=== PATIENT | male | born 1945 | race Caucasian/White ===

== ENCOUNTER 2020-04-01 07:01 | Outpatient (CLI) | payer MEDICARE ==
[2020-04-01 16:11] LABS: Hemoglobin 15.7 g/dL (14.0-18.0); Mean Corpuscular HGB CONC 31.8 G/DL (32.0-36.0); Mean Corpuscular Hemoglobin 30.5 PG (27.0-33.0); Mean Corpuscular Volume 96.1 fl (80.0-100.0); Mean Platelet Volume 12.5 fl (7.4-10.4); Platelet Count 130 10x3/uL (130-400); RBC Distribution Width 13.2 % (11.5-14.5); Red Blood Cell (RBC) Count 5.14 10x6/uL (4.40-5.80); White Blood Cell (WBC) Count 5.9 10x3/uL (4.5-11.0)
[2020-04-01 16:20] LABS: INR-International Normal Ratio 1.1; PTT 25.9 sec (22.0-33.0); Prothrombin Time 11.4 sec (9.5-12.1)
[2020-04-01 16:24] LABS: Anion Gap 18 mmol/L (10-20); BUN (Urea Nitrogen) 16 mg/dL (8.4-25.7); Calc. Creatinine Clearance 0 mL/min (70-130); Calcium 9.5 mg/dL (7.8-10.44); Carbon Dioxide 23 mmol/L (23-31); Chloride 105 mmol/L (98-107); Glucose 86 mg/dL (83-110); Potassium 4.5 mmol/L (3.5-5.1); Sodium 141 mmol/L (136-145)
[2020-04-02 06:31] LABS: SARS-CoV-2 MS2 Positive; SARS-CoV-2 N Gene Negative; SARS-CoV-2 S Gene Negative; SARS-CoV-2 by NAA Not Detected (NotDetected); SARS-CoV-2 orf1ab Negative
== END 2020-04-01 07:02 | disposition home or self-care (01) ==
LOC: LABBT 07:01
PROVIDERS: ATTEND Surgery
DX: Z01.818 Encounter for other preprocedural examination (principal); Z20.828 Contact with and (suspected) exposure to other viral communicable diseases; M51.16 Intervertebral disc disorders with radiculopathy, lumbar region; M48.062 Spinal stenosis, lumbar region with neurogenic claudication
CPT/HCPCS: 80048; 85027; 85610; 85730; 93005; U0003; 87635; 93010

== ENCOUNTER 2020-04-04 05:55 | Day surgery (SDC) | payer MEDICARE ==
[2020-04-03 09:54] VITALS: BMI 29.3
[2020-04-04] MEDS ORDERED: Thrombin 5000 UNITS/5 ML VIAL ONE (06:34)
[2020-04-04] MEDS ORDERED: Fentanyl 100 MCG/2 ML VIAL ONE ×4 (06:41→10:48)
[2020-04-04] MEDS ORDERED: Lidocaine 2% Jelly 5 ML TUBE ONE (06:41)
[2020-04-04] MEDS ORDERED: Phenylephrine 10 MG/ML VIAL ONE (07:56)
[2020-04-04] MEDS ORDERED: Bisacodyl 10 MG SUPP PR PRN (09:52)
[2020-04-04] MEDS ORDERED: Ondansetron PF 4 MG/2 ML Vial IVP PRN (09:52)
[2020-04-04] MEDS ORDERED: Morphine 2 MG/ML VIAL SLOW IVP PRN (09:52)
[2020-04-04] MEDS ORDERED: Milk Of Magnesia 30 ML UDCUP PO PRN (09:52)
[2020-04-04] MEDS ORDERED: Acetaminophen 325 MG TAB PO PRN (09:52)
[2020-04-04] MEDS ORDERED: traMADol HCl 50 MG TAB PO PRN (09:52)
[2020-04-04] MEDS ORDERED: Mag-Al 1200 mg/1200 mg/30 ML UDCUP PO PRN (09:52)
[2020-04-04] MEDS ORDERED: tiZANidine HCl 4 MG TAB PO PRN (09:56)
[2020-04-04] MEDS ORDERED: Ondansetron HCl/PF 4 MG/2 ML Vial IVP PRN ×2 (10:01→11:30)
[2020-04-04] MEDS ORDERED: Promethazine HCl 25 MG/ML VIAL IM PRN (10:01)
[2020-04-04] MEDS ORDERED: Promethazine HCl 25 MG/ML VIAL SLOW IVP PRN (10:01)
[2020-04-04] MEDS ORDERED: Famotidine 20 MG TAB PO PRN (10:09)
[2020-04-04] MEDS ORDERED: Lidocaine 1% PF 5 ML VIAL ONE (10:36)
[2020-04-04] MEDS ORDERED: ePHEDrine 50 MG/ML VIAL ONE (10:36)
[2020-04-04] MEDS ORDERED: PHENYLEPHRINE-NS 100 MCG/ML 10 ML SYRINGE ONE (10:36)
[2020-04-04] MEDS ORDERED: Ondansetron PF 4 MG/2 ML Vial ONE (10:36)
[2020-04-04] MEDS ORDERED: Glycopyrrolate 0.2 MG/ML 5 ML SYRINGE ONE (10:36)
[2020-04-04] MEDS ORDERED: Dexamethasone 20 MG/5 ML VIAL ONE (10:36)
[2020-04-04] MEDS ORDERED: PROPOFOL 200 MG/20 ML VIAL ONE (10:36)
[2020-04-04] MEDS ORDERED: Rocuronium Bromide 10 MG/ML (10ML VIAL) ONE (10:36)
--- NOTE | 2020-04-04 11:12 | OP ---
DATE OF PROCEDURE: 04/04/2020 LOCATION: OR 12. CHOIR TEACHER: Germaine Mcclain PA-C PREPROCEDURE DIAGNOSES: Multilevel lumbar stenosis with low back and leg pain, lumbar disk extrusion. POSTPROCEDURE DIAGNOSES: Multilevel lumbar stenosis with low back and leg pain, lumbar disk extrusion. PROCEDURES PERFORMED: 1. L2-L3, L3-L4, L4-5 laminectomies, partial facetectomies, foraminotomies. 2. Right L4-L5 diskectomy with use of operative microscope for microdissection. DESCRIPTION OF PROCEDURE: After informed consent was obtained from the patient, the patient was brought to the OR. Proper patient, pause, and identification were carried out. He was placed under excellent general endotracheal anesthesia and positioned prone on the OR table. All appropriate points were padded. We identified the L2 through L5 dorsal spines. Linear grisel was made over this region. This area was sterilely cleansed, prepared, and draped. Proper patient, pause, and identification were carried out. The wound was then opened with a combination of sharp, monopolar, and blunt dissection, proceeded to expose the L2, L3, L4, L5 dorsal spines and lamina. Localization film confirmed area of interest. We then performed L2-L3, L4-L5 laminectomies, partial facetectomies, foraminotomies. We then worked over the shoulder with right L5 nerve root and a right L4-L5 diskectomy was performed with the use of the operative microscope for microdissection. Copious irrigation occurred throughout as did maximizing hemostasis. The wound was closed in anatomic layers. Job ID: [id number]
[2020-04-04] MEDS ORDERED: Non-Formulary Medication 1 EACH PO PRN (11:21)
[2020-04-04] MEDS ORDERED: Morphine 4 MG/ML VIAL ONE (11:22)
[2020-04-04] MEDS ORDERED: Morphine Sulfate 2 MG/ML SYRINGE SLOW IVP PRN (11:30)
[2020-04-04] MEDS ORDERED: PACU-Morphine 4MG/ML VIAL SLOW IVP PRN (11:30)
[2020-04-04] MEDS ORDERED: Promethazine HCl 25 MG/ML VIAL IM/IV PRN (11:30)
[2020-04-04] MEDS ORDERED: Morphine 2 MG/ML VIAL ONE ×5 (11:58→15:26)
[2020-04-04] MEDS ORDERED: tiZANidine HCl 4 MG TAB ONE (13:39)
[2020-04-04] MEDS: Sodium Chloride 0.9% 1,000 ML IV SCH ×2 (17:00→22:32)
[2020-04-04] MEDS: CEFAZOLIN 2 GM in Premix Bag 1 BAG IVPB SCH ×2 (17:00→21:00)
[2020-04-04] MEDS: HYDROcodone/Acetaminophen 7.5/325 mg Tablet PO PRN (17:07)
[2020-04-04] MEDS: Acetaminophen/Codeine 30-300mg Tablet PO PRN ×2 (18:27→22:37)
[2020-04-04] MEDS ORDERED: Levothyroxine Sodium 25 MCG TAB PO SCH (21:00)
[2020-04-04] MEDS ORDERED: Pregabalin 75 MG CAP PO SCH (21:00)
[2020-04-04] MEDS ORDERED: Atorvastatin Calcium 40 MG TAB PO SCH (21:00)
[2020-04-05] MEDS: HYDROcodone/Acetaminophen 7.5/325 mg Tablet PO PRN ×2 (00:57→06:54)
[2020-04-05 08:11] VITALS: BP 113/75; TEMP 97.7
[2020-04-05] MEDS: Sodium Chloride 0.9% 1,000 ML IV SCH (08:31)
--- NOTE | 2020-04-05 09:26 | PRG ---
DATE OF SERVICE: 04/05/2020 Mr. Whitfield is postoperative day #1 following L2 through L5 laminectomy and right L4-L5 diskectomy. He is doing very well this morning with resolution in his low back and leg pain. He is neurologically intact in his lower extremity myotomes. He has already ambulated. We will plan on discharge, and we went over do's and don'ts in the postoperative period. Job ID: [id number]
--- NOTE | 2020-04-05 10:21 | DIS ---
DATE OF ADMISSION: 04/04/2020 DATE OF DISCHARGE: 04/05/2020 DIAGNOSES: 1. Lumbar stenosis. 2. Lumbar radiculopathy. 3. Lumbar herniated nucleus pulposus. PROCEDURES: L2 through L5 laminectomies, partial facetectomies, and foraminotomies with right L4-L5 diskectomy on April 04, 2020. CONSULT: None. HOSPITAL COURSE: Mr. Whitfield is a pleasant 74-year-old gentleman, who was admitted to the hospital following the above surgery for postoperative pain control and monitoring. He endorses postoperative low back pain, he reports that his preoperative left greater than right electrical leg pain has resolved. He states that his legs feel much better compared to before surgery. He denies paresthesias or weakness in the legs. He states that he has been able to ambulate about the halls without difficulty. He denies difficulty urinating. He states that he would like to go home today, and our team feels that he is stable for discharge home. Postoperative restrictions and wound care were discussed with the patient. Pain medications and muscle relaxants were provided upon discharge. The patient was instructed to hold his aspirin for 7 days following surgery. Our team will arrange for followup on an outpatient basis in the upcoming weeks for reevaluation and wound check. He will call sooner with any questions or concerns. Job ID: [id number]
[2020-04-05] MEDS: Acetaminophen/Codeine 30-300mg Tablet PO PRN (11:22)
== END 2020-04-05 11:55 | disposition home or self-care (01) ==
LOC: SDC 05:55 → SURG A 09:52 → SDC 04-05 11:55
PROVIDERS: ATTEND Surgery
PROC: 01NB0ZZ Release Lumbar Nerve, Open Approach (ICD-10-PCS; principal; 2020-04-04)
DX: M48.062 Spinal stenosis, lumbar region with neurogenic claudication (principal); M51.16 Intervertebral disc disorders with radiculopathy, lumbar region; I10 Essential (primary) hypertension; E78.5 Hyperlipidemia, unspecified; I25.10 Atherosclerotic heart disease of native coronary artery without angina pectoris; I48.91 Unspecified atrial fibrillation; E03.9 Hypothyroidism, unspecified; N40.0 Benign prostatic hyperplasia without lower urinary tract symptoms; Z86.73 Personal history of transient ischemic attack (TIA), and cerebral infarction without residual deficits; Z79.82 Long term (current) use of aspirin; Z79.899 Other long term (current) drug therapy; Z88.8 Allergy status to other drugs, medicaments and biological substances; Z95.0 Presence of cardiac pacemaker
CPT/HCPCS: 63047; 63048 ×2; 76000; J2270; J0690; J1100; J2370; J2405; J2704; J3010; J3370; J3490

== ENCOUNTER 2021-05-28 07:32 | Outpatient (CLI) | payer MEDICARE | END 2021-05-28 07:33 | disposition home or self-care (01) | LOC: TBSIIMAG 07:32 | PROVIDERS: ATTEND Surgery | DX: M54.50 Low back pain, unspecified (principal); M51.36 Other intervertebral disc degeneration, lumbar region; Z98.890 Other specified postprocedural states | CPT/HCPCS: 72110 ==

== ENCOUNTER 2021-05-30 15:55 | Outpatient (CLI) | payer MEDICARE | END 2021-05-30 15:56 | disposition home or self-care (01) | LOC: MRI 15:55 | PROVIDERS: ATTEND Surgery | DX: M54.50 Low back pain, unspecified (principal); M47.816 Spondylosis without myelopathy or radiculopathy, lumbar region; M48.061 Spinal stenosis, lumbar region without neurogenic claudication; M48.07 Spinal stenosis, lumbosacral region | CPT/HCPCS: 72148 ==